=== PATIENT | female | born 1980 | race Caucasian/White ===

== ENCOUNTER 2017-12-17 12:10 | Emergency (ER) | payer OTHER ==
[~2017-12-17] VITALS: Ht 172.7 cm; Wt 77.1 kg
[~2017-12-17 12:10] MED LIST: DOXY100C14 PO; FERR325T58 PO; PHEN100T82 PO
--- NOTE | 2017-12-17 12:48 | PHYS DOC ---
General Chief Complaint: UPPER EXTREMITY PAIN Stated Complaint: UPPER EXTREMITY PAIN Time Seen by MD: 12:12 Source: patient Exam Limitations: no limitations Problems: History of Present Illness Initial Comments Patient is a 37-year-old female who comes to the ED complaining of upper extremity numbness and tingling. Patient states she's had intermittent neck pains especially when she feels as if she sleeps the wrong way. Today she awoke with right arm numbness and tingling no weakness or dropped items. She's had right neck muscle tightness and tenderness with decreased ability to rotate her head to the right or side bend to the right. She had a positive Spurling compression test of the left. She denies any upper extremity weakness, no dropped items, no feelings of shooting electrical discomforts in either arm. Denies any trauma and no chest pain shortness of breath diaphoresis nausea or vomiting. Timing/Duration: intermittent Severity: moderate Modifying Factors: worse with movement, improves with rest Associated Symptoms: other Allergies: Coded Allergies: No Known Drug Allergies (Unverified , 06/15/15) Past Medical History Medical History: other (anxiety, urinary tract infection, chronic intermittent neck pains) Surgical History: no surgical history Social History Smoker: non-smoker Alcohol: none Drugs: none Review of Systems Constitutional: denies chills, denies diaphoresis, denies fever, denies malaise Respiratory: denies cough, denies shortness of breath Cardiovascular: denies chest pain, denies palpitations, denies syncope Physical Exam General Appearance: WD/WN, no apparent distress Ear, Nose, Throat: hearing grossly normal, normal ENT inspection, normal pharynx Neck: supple (bilateral sternocleidomastoid trapezius and scalene hypertonicity right greater than left, range of motion decreased globally and mildly no midline or bony tenderness no palpable bony step-off) Respiratory: lungs clear, normal breath sounds Cardiovascular: normal peripheral pulses, regular rate, rhythm Gastrointestinal: non tender, soft Back: no CVA tenderness, no vertebral tenderness Extremities: normal range of motion, non-tender, normal inspection Neurologic/Psychiatric: 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 I discussed signs and symptoms to monitor as well as indications for urgent return. The patient's questions were answered to her satisfaction, and in edition discussed [id number] prescription medications as well as the potential of need for MRI evaluation in the future if conservative measures were ineffective. Patient's expressed agreement and understanding with the treatment plan. See departure. Departure Time of Disposition: 12:46 Disposition: 01 HOME, SELF-CARE Diagnosis: torticollis, cervical radiculopathy Condition: GOOD Patient Instructions: Cervical Radiculopathy, [id number], Torticollis, Acute Additional Instructions: Please review the patient education materials given by ED staff. Prescription: Valium 5 mg at bedtime for 5 days, prednisone 20 mg twice daily for 5 days, [place] 5 mg quantity 5 Take medications with food. You'll need to follow-up with her doctor for recheck and may ultimately need MRI evaluation and specialty consultation. ED staff can provide you a list of doctors in the area to accept walk-in patients, follow-up with her doctor next week. Return to ED with new or changing symptoms. ABHI CARDOZA DO Dec 17, 2017 12:48
[2017-12-17] MEDS ORDERED: PRED20TA PO (12:49)
[2017-12-17] MEDS ORDERED: DIAZ5TAB PO (12:49)
[2017-12-17] MEDS ORDERED: HYDR-971 PO (12:49)
[2017-12-17 12:54] VITALS: BP 140/86
== END 2017-12-17 12:56 | disposition home or self-care (01) ==
LOC: ER 12:10
DX: M54.12 Radiculopathy, cervical region (principal); M43.6 Torticollis; F41.9 Anxiety disorder, unspecified; Z87.440 Personal history of urinary (tract) infections
CPT/HCPCS: 99283

== ENCOUNTER 2020-08-06 10:58 | Emergency (ER) | payer SELFPAY ==
[~2020-08-06] VITALS: Ht 170.2 cm; Wt 80.0 kg
[~2020-08-06 10:58] MED LIST changes: +DIAZ5TAB PO; +HYDR-3165 PO; +PRED20TA PO
[2020-08-06 11:54] VITALS: BP 136/81
[2020-08-06 12:03] LABS: BASO % 1 % (0-3); EOS # 0.2 x10^3/uL (0.0-0.7); EOS % 5 % (0-3); HEMATOCRIT 32.3 % (36.0-47.0); HEMOGLOBIN 10.1 g/dL (12.0-15.5); LYMPH # 0.6 x10^3/uL (1.0-4.8); LYMPH % 13 % (24-48); MEAN CORPUSCULAR HEMOGLOBIN 26 pg (25-35); MEAN CORPUSCULAR HGB CONC 31 g/dL (31-37); MEAN CORPUSCULAR VOLUME 82 fL (79-100); MONO # 0.4 x10^3/uL (0.0-1.1); MONO % 10 % (0-9); NEUT # 3.1 x10^3uL (1.8-7.7); NEUT % 72 % (31-73); PLATELET COUNT 308 x10^3/uL (140-400); RED BLOOD COUNT 3.92 x10^6/uL (3.50-5.40); RED CELL DISTRIBUTION WIDTH 16.2 % (11.5-14.5); WHITE BLOOD COUNT 4.4 x10^3/uL (4.0-11.0)
[2020-08-06 12:11] LABS: CALCIUM 9.1 mg/dL (8.5-10.1); CREATININE 0.6 mg/dL (0.6-1.0); GFR 133.3; POTASSIUM 3.6 mmol/L (3.5-5.1)
--- NOTE | 2020-08-06 13:02 | RAD ---
US PELVIS W/TV: 08/06/2020 11:17 AM INDICATION: 40 years old Female. Heavy vaginal bleeding COMPARISON: None. TECHNIQUE: Transabdominal and transvaginal sonographic evaluation of the pelvis was performed. Grayscale, color Doppler and spectral waveform analysis were utilized. FINDINGS: UTERUS: Size: 13.0 x 9.3 x 7.3 cm. Masses: Multiple circumscribed hypoechoic masses are identified within the myometrium suggestive of uterine leiomyomatosis measuring up to 6.3 x 5.3 cm. Endometrium: 13 mm. No suspicious vascularity is identified. Cervix measures 4.1 cm. RIGHT OVARY: Not visualized secondary to bowel LEFT OVARY: Not visualized secondary to bowel FREE FLUID: None. IMPRESSION: 1. Numerous hypoechoic masses replace the endometrium suggestive of uterine leiomyomatosis measuring up to 6.3 cm. Further characterization with MRI may be of benefit. 2. Endometrium is thickened measuring 13 mm. Correlate with menopausal status. 3. Ovaries are not visualized. Electronically signed by: Mikaela Jones MD (08/06/2020 12:59 PM) PAUL[facility]
--- NOTE | 2020-08-06 13:48 | PHYS DOC ---
Past History Past Medical History: Uterine Fibroids Past Surgical History: Other Additional Past Surgical Histo: right ankle pin Alcohol Use: None Drug Use: None General Adult EDM: Chief Complaint: VAGINAL BLEEDING HPI: HPI: 40 yo AA F PMH iron deficiency anemia and vitamin D deficiency, presents to the ed with c/o vaginal bleeding and lower abdominal cramping. H/o "platelet transfusion" 20 years ago with vaginal . Patient reports she has a history of known uterine fibroids (diagnosed at [facility]) for the past 2 years and is taking daily iron. States she started having a normal period 2 weeks ago and bled for 7 days. Patient then stopped bleeding for 2 days and then her period return for the past 5 days. States she is using 7-8 pads per day. Only past surgical history is foot surgery. ROS: Denies associated fever, chills, cough, sore throat, exertional dyspnea, syncope, lightheadedness, dizziness, diaphoresis, chest pain, dyspnea, hemoptysis, melena, hematochezia, hematemesis, nausea, vomiting, diarrhea, abnormal vaginal discharge itching or odor, rash, leg swelling. Review of Systems: Review of Systems: Constitutional: Denies fever or chills Eyes: Denies change in visual acuity HENT: Denies nasal congestion or sore throat Respiratory: Denies cough or shortness of breath Cardiovascular: Denies chest pain or edema GI: Denies nausea, vomiting, bloody stools or diarrhea : Denies dysuria Musculoskeletal: Denies back pain or joint pain Integument: Denies rash Neurologic: Denies headache, focal weakness or sensory changes Endocrine: Denies polyuria or polydipsia Lymphatic: Denies swollen glands Psychiatric: Denies depression or anxiety Heart Score: Risk Factors: Risk Factors: DM, Current or recent (<one month) smoker, HTN, HLP, family history of CAD, obesity. Risk Scores: Score 0 - 3: 2.5% MACE over next 6 weeks - Discharge Home Score 4 - 6: 20.3% MACE over next 6 weeks - Admit for Clinical Observation Score 7 - 10: 72.7% MACE over next 6 weeks - Early Invasive Strategies Allergies: Allergies: Allergies Coded Allergies Type Severity Reaction Last Updated Verified No Known Drug Allergies 06/15/15 No Physical Exam: PE: Constitutional: Well developed, well nourished, no acute distress, non-toxic appearance. [] HENT: Normocephalic, atraumatic, bilateral external ears normal, oropharynx moist, no oral exudates, nose normal. [] Eyes: PERRLA, EOMI, conjunctiva normal, no discharge. [] Neck: Normal range of motion, no tenderness, supple, no stridor. [] Cardiovascular:Heart rate regular rhythm, no murmur [] Lungs & Thorax: Bilateral breath sounds clear to auscultation [] Abdomen: Bowel sounds normal, soft, no tenderness, no masses, no pulsatile masses. [] Skin: Warm, dry, no erythema, no rash. [] Back: No tenderness, no CVA tenderness. [] Extremities: No tenderness, no cyanosis, no clubbing, ROM intact, no edema. [] Neurologic: Alert and oriented X 3, normal motor function, normal sensory function, no focal deficits noted. [] Psychologic: Affect normal, judgement normal, mood normal. [] Pelvic: chaperoned by rn, normal external genitalia, mild to moderate nonbrisk vaginal bleeding in vaginal vault, cervical office closed, no active hemorrhage, tolerated exam well Current Patient Data: Labs: Laboratory Tests Test 08/06/20 11:45 White Blood Count 4.4 x10^3/uL (4.0-11.0) Red Blood Count 3.92 x10^6/uL (3.50-5.40) Hemoglobin 10.1 g/dL (12.0-15.5) L Hematocrit 32.3 % (36.0-47.0) L Mean Corpuscular Volume 82 fL (79-100) Mean Corpuscular Hemoglobin 26 pg (25-35) Mean Corpuscular Hemoglobin Concent 31 g/dL (31-37) Red Cell Distribution Width 16.2 % (11.5-14.5) H Platelet Count 308 x10^3/uL (140-400) Neutrophils (%) (Auto) 72 % (31-73) Lymphocytes (%) (Auto) 13 % (24-48) L Monocytes (%) (Auto) 10 % (0-9) H Eosinophils (%) (Auto) 5 % (0-3) H Basophils (%) (Auto) 1 % (0-3) Neutrophils # (Auto) 3.1 x10^3uL (1.8-7.7) Lymphocytes # (Auto) 0.6 x10^3/uL (1.0-4.8) L Monocytes # (Auto) 0.4 x10^3/uL (0.0-1.1) Eosinophils # (Auto) 0.2 x10^3/uL (0.0-0.7) Basophils # (Auto) 0.0 x10^3/uL (0.0-0.2) Prothrombin Time 11.6 SEC (9.4-11.4) H Prothrombin Time INR 1.1 (0.9-1.1) Activated Partial Thromboplast Time 29 SEC (23-33) Sodium Level 140 mmol/L (136-145) Potassium Level 3.6 mmol/L (3.5-5.1) Chloride Level 106 mmol/L (98-107) Carbon Dioxide Level 28 mmol/L (21-32) Anion Gap 6 (6-14) Blood Urea Nitrogen 13 mg/dL (7-20) Creatinine 0.6 mg/dL (0.6-1.0) Estimated GFR (Cockcroft-Gault) 133.3 Glucose Level 124 mg/dL (70-99) H Calcium Level 9.1 mg/dL (8.5-10.1) Vital Signs: Vital Signs Date Time Temp Pulse Resp B/P (MAP) Pulse Ox O2 Delivery O2 Flow Rate FiO2 08/06/20 11:54 98.2 97 18 136/81 (99) 99 Room Air EKG: EKG: [] Radiology/Procedures: Radiology/Procedures: []IMAGING REPORT Signed PATIENT: REFUGIO GUARDADO ACCOUNT: [id number] : 1980 LOCATION: ER AGE: 40 SEX: F EXAM STATUS: REG ER ORD. PHYSICIAN: FAHEEM BLANCO DO REASON: HEAVY VAGINAL BLEEDING PROCEDURE: US PELVIS W/TV US PELVIS W/TV: 08/06/2020 11:17 AM INDICATION: 40 years old Female. Heavy vaginal bleeding COMPARISON: None. TECHNIQUE: Transabdominal and transvaginal sonographic evaluation of the pelvis was performed. Grayscale, color Doppler and spectral waveform analysis were utilized. FINDINGS: UTERUS: Size: 13.0 x 9.3 x 7.3 cm. Masses: Multiple circumscribed hypoechoic masses are identified within the myometrium suggestive of uterine leiomyomatosis measuring up to 6.3 x 5.3 cm. Endometrium: 13 mm. No suspicious vascularity is identified. Cervix measures 4.1 cm. RIGHT OVARY: Not visualized secondary to bowel LEFT OVARY: Not visualized secondary to bowel FREE FLUID: None. IMPRESSION: 1. Numerous hypoechoic masses replace the endometrium suggestive of uterine leiomyomatosis measuring up to 6.3 cm. Further characterization with MRI may be of benefit. 2. Endometrium is thickened measuring 13 mm. Correlate with menopausal status. 3. Ovaries are not visualized. Electronically signed by: Mikaela Jones MD (08/06/2020 12:59 PM) [facility] Course & Med Decision Making: Course & Med Decision Making Pertinent Labs and Imaging studies reviewed. (See chart for details) Concern for metomenorrhagia in the setting of leiomyoma and normocytic anemia. TVUS consistent with uterine fibroids measuring up to 6.3 cm. Patient's hemoglobin shows normocytic anemia at 10.1. Hemoglobin was 10.9 in 2018. Normal platelets. D/w Dr. Cazares (concrete building assembler)-who recommends provera 5mg qdaily x5days and outpatient follow-up. Patient hemodynamically stable. Strict ED return precautions for exertional dyspnea, rapid bleeding, severe abdominal pain or syn cope. Encouraged urgent outpatient follow-up with PMD and DIRECTOR OF EVENT MARKETING. Life- threatening processes were considered but are low suspicion at this time, given history and physical exam. Pt was educated on all prescription medications and adverse effects. All patient's questions were answered and pt was stable at time of discharge. Differential includes aortic dissection, aortic aneurysm, acute coronary syndrome, surgical abdomen (appendicitis, cholecystitis, ischemic bowel, strangulated hernia, etc), bowel obstruction or volvulus, bladder outlet obstruction, gastrointestinal bleeding, inflammatory bowel disease, peptic ulcer disease, sepsis, diverticular disease, ureterolithiasis, nephrolithiasis, ovarian or testicular torsion, ectopic , vaginal hemorrhage or infection I spoken with the patient and her caregivers. I explained the patient's condition, diagnoses and treatment plan based on the information available to me at this time. I have answered the patient and her caregiver's questions and addressed any concerns. The patient and her caregivers have a good understanding of patient's diagnosis, condition and treatment plan as can be expected at this point. Vital signs have been stable. Patient's condition is stable and appropriate for discharge from the emergency department. Patient will pursue further outpatient evaluation with primary care physician or other designated or consulting physician as outlined in the discharge instructions. The patient and/or caregivers are agreeable to this plan of care and follow-up instructions have been explained in detail. The patient and/or caregivers have received these instructions in written form and have expressed an understanding of the discharge instructions. The patient and/or caregivers are aware that any significant change of condition or worsening of symptoms should prompt immediate return to this or the closest emergency department or call to 911. Viddyad Disclaimer: DragSeerGate Disclaimer: This electronic medical record was generated, in whole or in part, using a voice recognition dictation system. Departure Departure: Impression: Primary Impression: Uterine fibroid Additional Impressions: Menorrhagia Normocytic anemia Metrorrhagia Disposition: HOME/RESIDENCE PRIOR TO ADM Condition: STABLE Referrals: PCP,NO (PCP) Patient Instructions: Anemia, [place], Uterine Bleeding, Dysfunctional, Uterine Fibroid, [id number] Additional Instructions: Callum Cazares MD [facility] DIRECTOR OF EVENT MARKETING Address: [address] [place] [address] Scripts Ferrous Sulfate (FERROUS SULFATE) 325 Mg Tablet 1 TAB PO BID for anemia for 30 Days, #60 TAB 3 Refills Prov: FAHEEM BLANCO DO 08/06/20 Medroxyprogesterone Acetate (PROVERA) 5 Mg Tablet 1 TAB PO DAILY for vaginal bleeding for 5 Days, #5 TAB 0 Refills Prov: FAHEEM BLANCO DO 08/06/20 Justification of Admission: Justification of Admission: Justification of Admission Dx: N/A FAHEEM BLANCO DO Aug 06, 2020 13:47
[2020-08-06 14:20] LABS: U PREG PATIENT NEGATIVE (NEG)
[2020-08-06 14:21] LABS: BILIRUBIN,URINE NEG (NEG); CLARITY,URINE TURBID; COLOR,URINE RED; GLUCOSE,URINE NEG (NEG); NITRITE,URINE NEG (NEG); UROBILINOGEN,URINE 0.2 mg/dL (0.2 mg/dL)
[2020-08-06] MEDS ORDERED: MEDR5TAB PO (14:24)
[2020-08-06] MEDS ORDERED: FERR325T14 PO (14:24)
[2020-08-06 14:27] LABS: RBC,URINE >40 /HPF (0-2)
[2020-08-06 14:28] LABS: BACTERIA,URINE FEW /HPF (0-FEW); SQUAMOUS EPITHELIAL CELL,UR FEW /LPF
== END 2020-08-06 14:21 | disposition home or self-care (01) ==
LOC: ER 10:58
DX: D25.9 Leiomyoma of uterus, unspecified (principal); N92.0 Excessive and frequent menstruation with regular cycle; D64.9 Anemia, unspecified; N92.1 Excessive and frequent menstruation with irregular cycle; Z86.2 Personal history of diseases of the blood and blood-forming organs and certain disorders involving the immune mechanism
CPT/HCPCS: 36415; 76830; 76856; 80048; 81001; 81025; 85025; 85610; 85730; 87086; 99284

== ENCOUNTER 2021-07-13 11:46 | Emergency (ER) | payer SELFPAY ==
[~2021-07-13] VITALS: Ht 170.2 cm; Wt 80.0 kg
[~2021-07-13 11:46] MED LIST changes: +DOXY-181 PO; -DOXY100C14 PO; +FERR325T14 PO; +MEDR5TAB PO
[2021-07-13 12:30] VITALS: BP 164/90
--- NOTE | 2021-07-13 12:57 | PHYS DOC ---
Past History Past Medical History: Uterine Fibroids Past Surgical History: Other Additional Past Surgical Histo: right ankle pin Alcohol Use: None Drug Use: None General Adult EDM: Chief Complaint: COUGH HPI: HPI: Patient is a 41-year-old female presents with cough. Patient states that she had Covid 3 weeks ago when still having a cough and shortness of breath. Patient is hemodynamically stable. Denies fever. Denies nausea/vomitin g/diarrhea. Review of Systems: Review of Systems: Constitutional: Denies fever or chills Eyes: Denies change in visual acuity HENT: Denies nasal congestion or sore throat Respiratory: Reports cough or shortness of breath Cardiovascular: Denies chest pain or edema GI: Denies abdominal pain, nausea, vomiting, bloody stools or diarrhea : Denies dysuria Musculoskeletal: Denies back pain or joint pain Integument: Denies rash Neurologic: Denies headache, focal weakness or sensory changes Endocrine: Denies polyuria or polydipsia Lymphatic: Denies swollen glands Psychiatric: Denies depression or anxiety Allergies: Allergies: Allergies Coded Allergies Type Severity Reaction Last Updated Verified No Known Drug Allergies 06/15/15 No Physical Exam: PE: Constitutional: Well developed, well nourished, no acute distress, non-toxic appearance. [] HENT: Normocephalic, atraumatic, bilateral external ears normal, oropharynx moist, no oral exudates, nose normal. [] Eyes: PERRLA, EOMI, conjunctiva normal, no discharge. [] Neck: Normal range of motion, no tenderness, supple, no stridor. [] Cardiovascular:Heart rate regular rhythm, no murmur [] Lungs & Thorax: Bilateral breath sounds clear to auscultation [] Abdomen: Bowel sounds normal, soft, no tenderness, no masses, no pulsatile masses. [] Skin: Warm, dry, no erythema, no rash. [] Back: No tenderness, no CVA tenderness. [] Extremities: No tenderness, no cyanosis, no clubbing, ROM intact, no edema. [] Neurologic: Alert and oriented X 3, normal motor function, normal sensory function, no focal deficits noted. [] Psychologic: Affect normal, judgement normal, mood normal. [] EKG: EKG: [] Radiology/Procedures: Radiology/Procedures: []Exam Date: 07/13/2021 1:02 PM XR CHEST 1V Indication: Reason: COUGH / Spl. Instructions: / History: . FINDINGS/ IMPRESSION: The cardiac silhouette and pulmonary vasculature are within normal limits. There is no focal consolidation, pleural effusion or pneumothorax. The visualized osseous structures are intact. Electronically signed by: Bernardo Max MD (07/13/2021 1:23 PM) [id number] Heart Score: C/O Chest Pain: No Risk Factors: Risk Factors: DM, Current or recent (<one month) smoker, HTN, HLP, family history of CAD, obesity. Risk Scores: Score 0 - 3: 2.5% MACE over next 6 weeks - Discharge Home Score 4 - 6: 20.3% MACE over next 6 weeks - Admit for Clinical Observation Score 7 - 10: 72.7% MACE over next 6 weeks - Early Invasive Strategies Course & Med Decision Making: Course & Med Decision Making Pertinent Labs and Imaging studies reviewed. (See chart for details) [] 41-year-old female presents with a cough. Patient states she had Covid 3 weeks ago and is still coughing and feeling short of breath. Patient is he modynamically stable. Afebrile. Patient is requesting a chest x-ray.Patient given dexamethasone. Chest x-ray is remarkable. Discussed results with patient. Plan to patient the cough may take a little while to resolve. Patient should take ibuprofen and Tylenol at home for discomfort. Patient states that she does not have a PCP due to insurance. Discussed resources at [facility] Discussed return precautions. She is hemodynamically stable and okay with discharge plan. Jeet Disclaimer: Jeet Disclaimer: This electronic medical record was generated, in whole or in part, using a voice recognition dictation system. Departure Departure: Impression: Primary Impression: Cough Disposition: HOME / SELF CARE / HOMELESS Condition: STABLE Referrals: PCP,NO (PCP) Patient Instructions: Cough, Adult Additional Instructions: You are seen in the emergency room for a cough. You were given steroids in the ER to help with your symptoms. Please call your PCP and make a follow-up appointment for further management please return to the emergency room with worsening symptoms or concerns. EMERGENCY DEPARTMENT GENERAL DISCHARGE INSTRUCTIONS Thank you for coming to [facility] (ED) today and trusting us with you care. We trust that you had a positivie experience in our Emergency Department. If you wish to speak to the department management, you may call the director at [phone]. YOUR FOLLOW UP INSTRUCTIONS ARE FOLLOWS: 1. Do you have a private Doctor? If you do not have a private doctor, please ask for a resource list of physicians or clinics that may be able to assist you with follow up care. 2. The Emergency Physician has interpreted your x-rays. The X-Ray specialist will also review them. If there is a change in the findings, you will be notified in 48 h ours when at all possible. 3. A lab test or culture has been done, your results will be reviewed and you will be notified if you need a change in treatment. ADDITIONAL INSTRUCTIONS AND INFORMATION: 1. Your care today has been supervised by a physician who is specially trained in emergency care. Many problems require more than one evaluation for a complete diagnosis and treatment. We recommend that you schedule your follow up appointment as recommended to ensure complete treatment of you illness or injury. If you are unable to obtain follow up care and continue to have a problem, or if your condition worsens, we recommend that you return to the ED. 2. We are not able to safely determine your condition over the phone nor are we able to give sound medical advice over the phone. For these safety reasons, if you call for medical advice we will ask you to come to the ED for further evaluation. 3. If you have any questions regarding these discharge instructions please call the ED at [phone]. SAFETY INFORMATION: In the interest of safety, wellness, and injury prevention; we encourage you to wear your sealbelt, if you smoke; quite smoking, and we encourage family to use a protective helmet for bicycling and other sporting events that present an increased risk for head injury. IF YOUR SYMPTOMS WORSEN OR NEW SYMPTOMS DEVELOP, OR YOU HAVE CONCERNS ABOUT YOUR CONDITION; OR IF YOUR CONDITION WORSENS WHILE YOU ARE WAITING FOR YOUR FOLLOW UP APPOINTMENT; EITHER CONTACT YOUR PRIMARY CARE DOCTOR, THE PHYSICIAN WHOSE NAME AND NUMBER YOU WERE GIVEN, OR RETURN TO THE ED IMMEDIATELY. CHUN ALVARADO APRN Jul 13, 2021 12:57
[2021-07-13] MEDS ORDERED: DEXAMETHASONE SOD PHOS 10 MG/ML VIAL. PO ONE (13:00)
--- NOTE | 2021-07-13 13:25 | RAD ---
Exam Date: 07/13/2021 1:02 PM XR CHEST 1V Indication: Reason: COUGH / Spl. Instructions: / History: . FINDINGS/ IMPRESSION: The cardiac silhouette and pulmonary vasculature are within normal limits. There is no focal consolidation, pleural effusion or pneumothorax. The visualized osseous structures are intact. Electronically signed by: Bernardo Max MD (07/13/2021 1:23 PM) [id number]
== END 2021-07-13 14:25 | disposition home or self-care (01) ==
LOC: ER 11:46
DX: R05 Cough (principal); R06.02 Shortness of breath
CPT/HCPCS: 71045; 99283; J1100